=== PATIENT | female | born 1960 | race American Indian/Alaskan Native ===

== ENCOUNTER 2016-10-19 10:12 | Day surgery (SDC) | payer BC ==
[2016-10-13 10:52] VITALS: BMI 35.4
[2016-10-19] MEDS ORDERED: Lidocaine 4% (Laryng-O-Jet) Kit MM ONE (10:52)
[2016-10-19] MEDS ORDERED: Lidocaine 2% Inj (20ml) ONE (11:05)
[2016-10-19] MEDS ORDERED: EPINEPHrine 1 mg/ml (1:1000) Inj ONE (11:05)
[2016-10-19] MEDS ORDERED: Lactated Ringer's 1,000 ML IV ONE ×2 (12:00)
[2016-10-19] MEDS ORDERED: Thrombin Topical 20,000 Intl Units Spray Kit TOP ONE (12:13)
[2016-10-19] MEDS ORDERED: Collagen Hemostat Powder ONE (12:13)
--- NOTE | 2016-10-19 13:30 | RAD ---
HISTORY: Postop bronchoscopy. Portable study 12:45. COMPARISON: No prior. FINDINGS: LUNGS: Right lower lobe mass/ infiltrate. The mass/infiltrate measures 6.9 cm in diameter. PLEURA: No pneumothorax following bronchoscopy. CARDIOVASCULAR: No radiographic findings to suggest acute or significant cardiovascular disease. OSSEOUS STRUCTURES: No significant abnormalities. VISUALIZED UPPER ABDOMEN: Normal. OTHER FINDINGS: None. IMPRESSION: No adverse findings following bronchoscopy. No pneumothorax identified. Approximately 7 cm right lower lobe mass.
--- NOTE | 2016-10-19 13:31 | RAD ---
PROCEDURE: Fluoroscopy up to 1 hr. HISTORY: B/L NODULES BRONCHIAL COMPARISON: None TECHNIQUE: Standard protocol for this study/examination. FINDINGS: Submitted images from the current procedure: 3.0 IMPRESSION: Less than 1 hr fluoroscopic time utilized during performance of the procedure. Total fluoroscopic time (continuous mode) utilized during the procedure: 13.0 seconds.
[2016-10-19 14:14] VITALS: RESP 16; TEMP 97.8; O2SAT 99
[2016-10-19 15:10] VITALS: BP 139/79; PULSE 73
--- NOTE | 2016-11-11 10:28 | OP ---
PROCEDURE DATE: 10/19/2016 PROCEDURE: Bronchoscopy, biopsy. INDICATIONS: Bilateral lung nodules. ANESTHESIA: Local, IV sedation. Bronchoscope passed through the right nostril. Vocal cord inspected normal. Trachea mormal biopsy taken right lower lobe, washing was done. The patient discharge, follow up outpatient. Austyn Martin MD cc: [id number] TT: 11/05/2016 11:21:08 rn 11/11/2016 09:25:44
== END 2016-10-19 15:05 | disposition home or self-care (01) ==
LOC: C.SDS 10:12
PROVIDERS: ATTEND Internal Medicine Pulmonary Disease
DX: R91.8 Other nonspecific abnormal finding of lung field (principal)
CPT/HCPCS: 31628; 71010; 87070; 87101; 87116; 87205; 87206; 88104; 88305; J0171; J7120